=== PATIENT | male | born 1975 | race Caucasian/White ===

== ENCOUNTER 2017-02-12 13:26 | Emergency (ER) | payer SELFPAY ==
[2017-02-12 13:30] VITALS: BP 133/71
[2017-02-12] MEDS ORDERED: DOXYCYCLINE HYCLATE 100 MG TABLET PO ONE (14:15)
[2017-02-12] MEDS ORDERED: DOXY100C2 PO (14:18)
--- NOTE | 2017-02-12 14:18 | PHYS DOC ---
Adult General Chief Complaint Chief Complaint: FINGER PROBLEM HPI HPI Patient is a 41-year-old male who presents with pain and swelling to his left index finger, worsening over the past 3-4 days. He did squeeze some pus out of it. At first it seemed like a bug bite. There was no specific injury to the area. He is not suspicious of any retained foreign body. Review of Systems Review of Systems Constitutional: Denies fever or chills [] Integument: Denies any other abscesses on his skin Current Medications Current Medications Current Medications Medications (Trade) Dose Ordered Sig/Liz Start Time Stop Time Status Last Admin Dose Admin Doxycycline Hyclate (Vibra-Tab) 100 mg 1X ONCE 02/12/17 14:15 02/12/17 14:16 Allergies Allergies Allergies Coded Allergies Type Severity Reaction Last Updated Verified Sulfa (Sulfonamide Antibiotics) Allergy Unknown 02/12/17 Yes Physical Exam Physical Exam Constitutional: Well developed, well nourished, no acute distress, non-toxic appearance. [] HENT: Normocephalic, atraumatic, bilateral external ears normal, nose normal. [ ] Eyes: conjunctiva normal, no discharge. [] Neck: Normal range of motion, no stridor. [] Skin: Warm, dry, no erythema, no rash. [] Extremities: Left index finger has a abscess located over the proximal phalanx approximately 2 cm in diameter with no surrounding cellulitis. There has been some bloody and purulent drainage from the abscess. Patient's index finger range of motion is slightly limited by swelling but no significant limitation. Neurologic: Alert and oriented X 3, normal motor function, normal sensory function, no focal deficits noted. [] EKG EKG [] Radiology/Procedures Radiology/Procedures Procedure: Incision and drainage of left index finger abscess by me The skin was cleaned with alcohol. The skin was frozen by topical application of ice. A scalpel was used to make an incision over the area of most lengthy. No significant purulent drainage was obtained. Patient tolerated the procedure well. [] Course & Med Decision Making Course & Med Decision Making Pertinent Labs and Imaging studies reviewed. (See chart for details) 41-year-old male with a small abscess on his left index finger, he has been squeezing it at home and had squeezed out some pus. I did incise the abscess that did not get any further pus out of it, I believe he had already expressed it out. We will have him soak and put him on antibiotics, [place] is [place] [] Claudeon Disclaimer Dragon Disclaimer This chart was dictated in whole or in part using Voice Recognition software in a busy, high-work load, and often noisy Emergency Department environment. It may contain unintended and wholly unrecognized errors or omissions. Departure Departure: Impression: Primary Impression: Abscess of finger of left hand Disposition: HOME, SELF-CARE Condition: STABLE Patient Instructions: Abscess, [id number] Additional Instructions: Soak your hand 3-4 times daily in warm soapy water for about 10 minutes, to keep the incision open and allow it to drain. Don't squeeze it. Elevate for swelling and pain. Doxycycline, antibiotic, every 12 hours. Your next dose is due at bedtime tonight. Follow-up in 1-2 days for recheck, sooner if worse. Scripts Doxycycline Hyclate (DOXYCYCLINE HYCLATE) 100 Mg Capsule 1 CAP PO BID for finger infection/abscess, #20 CAP Prov: KAROL HURD MD 02/12/17 KAROL HURD MD February 12, 2017 14:18
[2017-02-12] MEDS ORDERED: MUPIROCIN 2% TOPICAL OINTMENT 22GM TUBE. TP ONE ×2 (14:23→14:30)
== END 2017-02-12 14:32 | disposition home or self-care (01) ==
LOC: ER 13:26
DX: L02.512 Cutaneous abscess of left hand (principal); Z88.2 Allergy status to sulfonamides
CPT/HCPCS: 26010; 99284-25

== ENCOUNTER 2017-03-04 21:41 | Emergency (ER) | payer OTHER ==
[~2017-03-04] VITALS: Ht 172.7 cm; Wt 76.7 kg
[~2017-03-04 21:41] MED LIST: DOXY100C2 PO
--- NOTE | 2017-03-04 22:47 | PHYS DOC ---
General Chief Complaint: BACK INJURY Stated Complaint: FALL Time Seen by MD: 22:15 Source: patient Exam Limitations: no limitations Problems: History of Present Illness Initial Comments Patient is a 41-year-old male who comes to the ED complaining of fall injury. Patient states that he built a homemade zip line for his kids in his backyard. Tonight he says he decided to try it and when he did so the line broke causing him to fall an estimated 10-12 feet landing on his back. Patient states that he did hit his head on the ground he did not lose consciousness but he "saw stars. " He's had a mild headache with neck discomfort no focal weakness no nausea vomiting. Headache described as minimal aching no exacerbating or alleviating factors. He was able to walk into the house and took some ibuprofen and laid down to rest. The symptoms were persistent and he developed bilateral upper extremity tingling without weakness and decided to come for evaluation. In the ED his vital signs are stable at this point he denies headache photophobia and nausea vomiting or focal weakness his only complaint is neck and upper back pain and bilateral upper extremity tingling. No low back pain or other complaints. Occurred: this afternoon Severity: moderate Injuries/Pain Location: head, back Context: other Loss of Consciousness: no loss of consciousness Modifying Factors: worse with jarring, worse with movement, improves with rest Associated Symptoms: headache, neck pain, other Allergies: Coded Allergies: Sulfa (Sulfonamide Antibiotics) (Verified Allergy, Intermediate, 03/05/17) Past Medical History Medical History: other (MRSA skin infections) Surgical History: noncontributory Social History Smoker: non-smoker Alcohol: rarely Drugs: none Review of Systems Constitutional: denies chills, denies diaphoresis, denies fever, denies malaise Eyes: denies blindness, denies blurred vision, denies drainage, denies photophobia Ears, Nose, Mouth, Throat: denies ear pain, denies ear discharge, denies nose pain, denies nose discharge, denies epistaxis, denies mouth pain, denies throat pain Respiratory: denies cough, denies shortness of breath, denies wheezing Cardiovascular: denies chest pain, denies palpitations, denies syncope Gastrointestinal: denies abdominal pain, denies diarrhea, denies nausea, denies vomiting Genitourinary: denies dysuria, denies frequency, denies hematuria Musculoskeletal: see HPI, back pain Psychiatric/Neurological: see HPI Physical Exam General Appearance: WD/WN, mild distress Head: no evidence of injury (negative Dias sign and negative raccoon eyes no visual or palpable evidence of trauma.) Eyes: bilateral eye normal inspection, bilateral eye PERRL, bilateral eye EOMI Ears, Nose, Mouth, Throat: hearing grossly normal, no evidence of ENT injury ( no ear or nose discharge no fluid behind TMs bilaterally), no dental injury Neck: other (diffuse soft tissue and bony tenderness without focality and no palpable deformity there is hypertonicity of the paraspinal muscles.) Cardiovascular/Respiratory: normal peripheral pulses, no respiratory distress Gastrointestinal: non tender, soft Back: no CVA tenderness, no vertebral tenderness Extremities: normal range of motion, non-tender 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 Labs are back and unremarkable, CT evaluation is pending. Patient will have prolonged ED course due to radiology delays. PATIENT: DALILA SULLIVAN ACCOUNT: [id number] : 1975 LOCATION: ER AGE: 41 SEX: M EXAM STATUS: PRE ER ORD. PHYSICIAN: JOSE CRUZ BUENO DO REASON: fall to back 12 feet PROCEDURE: CT THORACIC SPINE WO CONTRAST Examination: CT thoracic spine without contrast and CT abdomen and pelvis without contrast HISTORY: History of fall from 12 feet zip line, pain in the arms and hands, numbness COMPARISON: None available TECHNIQUE: Axial CT images of the thoracic spine was performed without contrast with coronal and sagittal reformatted performed. Axial CT images of the abdomen and pelvis were performed without contrast. Coronal and reformats are performed. Exposure: One or more of the following individualized dose reduction techniques were utilized for this examination: 1. Automated exposure control 2. Adjustment of the mA and/or kV according to patient size 3. Use of iterative reconstruction technique FINDINGS: The visualized bibasilar lungs grossly appears unremarkable. No evidence of free air identified in the abdomen. The examination is limited without contrast. Noncontrasted liver, spleen, adrenal is unremarkable. The gallbladder is mildly distended The stomach is mildly distended. The pancreas appears somewhat short. The stomach is mildly distended. The small bowel is nondilated. Feces and gas noted in the colon. No significant free fluid in dependent pelvis. The appendix also appears unremarkable. The caliber of the visualized aorta grossly appears unremarkable on this noncontrasted exam. Moderate disc height loss identified at L4-L5 vertebral level likely secondary to degeneration. The vertebral body heights in thoracic spine are maintained. No significant listhesis identified with the bilateral facets are well aligned. Disc bulge identified at L4-L5 vertebral level with mild protrusion. No acute fracture identified. IMPRESSION: 1. No acute intra-abdominal findings. 2. No acute fracture identified. Electronically signed by: Smith Gtz MD (03/04/2017 11:59 PM) DICTATED AND SIGNED BY: SMITH GTZ MD DATE: 03/04/17 2339 CC: GABINO BOWERS; JOSE CRUZ BUENO DO ~ PATIENT: DALILA SULLIVAN ACCOUNT: [id number] : 1975 LOCATION: ER AGE: 41 SEX: M EXAM STATUS: PRE ER ORD. PHYSICIAN: JOSE CRUZ BUENO DO REASON: fall to back 12 feet PROCEDURE: CT HEAD AND CERVICAL SPINE WO Examination: CT head and cervical spine Exposure: One or more of the following individualized dose reduction techniques were utilized for this examination: 1. Automated exposure control 2. Adjustment of the mA and/or kV according to patient size 3. Use of iterative reconstruction technique CT HEAD INDICATION: Ct Head and Cervical spine for fall from 12 feet, pain and numbness in both arms and hands COMPARISON: None Available. TECHNIQUE: 5 mm contiguous axial images were obtained from the skull base to the vertex in both bone and soft tissue algorithm. FINDINGS: No abnormal attenuation within the brain parenchyma. No evidence of acute intracranial hemorrhage. No extra-axial fluid collections. No mass effect or midline shift. Ventricular size is appropriate. Basal cisterns are patent. No fractures identified.Alvarez-white differentiation is preserved.Globes and orbits are within normal limits. Paranasal sinuses and mastoid air cells are clear. IMPRESSION: Unremarkable CT examination of the head without contrast, as above. Specifically, no evidence of an acute intracranial abnormality. CT CERVICAL SPINE INDICATION: Ct Head and Cervical spine for fall from 12 feet, pain and numbness in both arms and hands COMPARISON: None Available. Technique: 2.5 mm contiguous axial images were obtained from the skull base through the cervicothoracic junction in both bone and soft tissue algorithm. Additional sagittal and coronal reconstructions were also performed. FINDINGS: Vertebral body height and alignment are maintained. Cervical lordosis is preserved. The lateral masses of C1 are aligned upon C2. No fractures identified. The bony canal is patent throughout. Minimal joint space loss identified at C6-C7 vertebral level. The paraspinous soft tissues are unremarkable. Visualized intracranial contents are unremarkable. Lung apices are clear. IMPRESSION: 1. No acute fracture the cervical spine. Correlate clinically. 2. Mild degenerative changes identified at C6-C7 vertebral level. Electronically signed by: Smith Gtz MD (03/04/2017 11:39 PM) DICTATED AND SIGNED BY: SMITH GTZ MD DATE: 03/04/17 0725 CC: GABINO BOWERS; JOSE CRUZ BUENO DO ~ Labs unremarkable 0011: I discussed findings with the patient. He denies any new or worsening symptoms and says his hand tingling is improving. I discussed observation admission possibility patient refuses. I discussed concussion precautions and the treatment plan patient expressed agreement and understanding of same. Departure Time of Disposition: 00:12 Disposition: HOME, SELF-CARE Diagnosis: Fall, concussion, contusion Condition: STABLE Patient Instructions: Chest Contusion, [id number], Concussion and Brain Injury, [id number] Additional Instructions: Off work through March 07. Ice 15-20 minutes 4-6 times daily. Rest, no strenuous activity exercise or exertion until cleared by your doctor. [id number] Tylenol as needed for discomfort. Aggressive hydration with Gatorade or water. A Tylenol #3 starter pack was sent home with you. Take one every 6 hours as needed for discomfort. Take with food to avoid nausea and vomiting. Follow-up with your doctor on Monday for recheck and further activity restriction modifications. Return to the ED with new or changing symptoms. JOSE CRUZ BUENO DO Mar 04, 2017 22:47
[2017-03-04] MEDS ORDERED: IV NORMAL SALINE 1,000ML 1,000 ML IV SCH (23:00)
[2017-03-04] MEDS ORDERED: KETOROLAC 30 MG/ML VIAL. IV ONE (23:00)
[2017-03-04 23:36] LABS: BASO # 0.1 x10^3/uL (0.0-0.2); BASO % 1 % (0-3); EOS # 0.2 x10^3/uL (0.0-0.7); EOS % 2 % (0-3); HEMOGLOBIN 13.7 g/dL (13.0-17.5); LYMPH # 2.4 x10^3/uL (1.0-4.8); LYMPH % 27 % (24-48); MEAN CORPUSCULAR HEMOGLOBIN 29 pg (25-35); MEAN CORPUSCULAR HGB CONC 34 g/dL (31-37); MEAN CORPUSCULAR VOLUME 88 fL (79-100); MONO # 0.7 x10^3/uL (0.0-1.1); MONO % 8 % (0-9); NEUT # 5.6 x10^3uL (1.8-7.7); NEUT % 63 % (31-73); PLATELET COUNT 259 x10^3/uL (140-400); RED BLOOD COUNT 4.69 x10^6/uL (4.30-5.70); RED CELL DISTRIBUTION WIDTH 12.4 % (11.5-14.5); WHITE BLOOD COUNT 8.9 x10^3/uL (4.0-11.0)
--- NOTE | 2017-03-04 23:42 | RAD ---
Examination: CT head and cervical spine Exposure: One or more of the following individualized dose reduction techniques were utilized for this examination: 1. Automated exposure control 2. Adjustment of the mA and/or kV according to patient size 3. Use of iterative reconstruction technique CT HEAD INDICATION: Ct Head and Cervical spine for fall from 12 feet, pain and numbness in both arms and hands COMPARISON: None Available. TECHNIQUE: 5 mm contiguous axial images were obtained from the skull base to the vertex in both bone and soft tissue algorithm. FINDINGS: No abnormal attenuation within the brain parenchyma. No evidence of acute intracranial hemorrhage. No extra-axial fluid collections. No mass effect or midline shift. Ventricular size is appropriate. Basal cisterns are patent. No fractures identified.Alvarez-white differentiation is preserved.Globes and orbits are within normal limits. Paranasal sinuses and mastoid air cells are clear. IMPRESSION: Unremarkable CT examination of the head without contrast, as above. Specifically, no evidence of an acute intracranial abnormality. CT CERVICAL SPINE INDICATION: Ct Head and Cervical spine for fall from 12 feet, pain and numbness in both arms and hands COMPARISON: None Available. Technique: 2.5 mm contiguous axial images were obtained from the skull base through the cervicothoracic junction in both bone and soft tissue algorithm. Additional sagittal and coronal reconstructions were also performed. FINDINGS: Vertebral body height and alignment are maintained. Cervical lordosis is preserved. The lateral masses of C1 are aligned upon C2. No fractures identified. The bony canal is patent throughout. Minimal joint space loss identified at C6-C7 vertebral level. The paraspinous soft tissues are unremarkable. Visualized intracranial contents are unremarkable. Lung apices are clear. IMPRESSION: 1. No acute fracture the cervical spine. Correlate clinically. 2. Mild degenerative changes identified at C6-C7 vertebral level. Electronically signed by: Smith Gtz MD (03/04/2017 11:39 PM)
[2017-03-04 23:51] LABS: ALBUMIN 3.9 g/dL (3.4-5.0); ALBUMIN/GLOBULIN RATIO 1.3 (1.0-1.7); CALCIUM 8.5 mg/dL (8.5-10.1); CREATININE 1.2 mg/dL (0.7-1.3); GFR 66.1; TOTAL BILIRUBIN 0.2 mg/dL (0.2-1.0); TOTAL PROTEIN 6.8 g/dL (6.4-8.2)
--- NOTE | 2017-03-05 00:02 | RAD ---
Examination: CT thoracic spine without contrast and CT abdomen and pelvis without contrast HISTORY: History of fall from 12 feet zip line, pain in the arms and hands, numbness COMPARISON: None available TECHNIQUE: Axial CT images of the thoracic spine was performed without contrast with coronal and sagittal reformatted performed. Axial CT images of the abdomen and pelvis were performed without contrast. Coronal and reformats are performed. Exposure: One or more of the following individualized dose reduction techniques were utilized for this examination: 1. Automated exposure control 2. Adjustment of the mA and/or kV according to patient size 3. Use of iterative reconstruction technique FINDINGS: The visualized bibasilar lungs grossly appears unremarkable. No evidence of free air identified in the abdomen. The examination is limited without contrast. Noncontrasted liver, spleen, adrenal is unremarkable. The gallbladder is mildly distended The stomach is mildly distended. The pancreas appears somewhat short. The stomach is mildly distended. The small bowel is nondilated. Feces and gas noted in the colon. No significant free fluid in dependent pelvis. The appendix also appears unremarkable. The caliber of the visualized aorta grossly appears unremarkable on this noncontrasted exam. Moderate disc height loss identified at L4-L5 vertebral level likely secondary to degeneration. The vertebral body heights in thoracic spine are maintained. No significant listhesis identified with the bilateral facets are well aligned. Disc bulge identified at L4-L5 vertebral level with mild protrusion. No acute fracture identified. IMPRESSION: 1. No acute intra-abdominal findings. 2. No acute fracture identified. Electronically signed by: Smith Gtz MD (03/04/2017 11:59 PM)
[2017-03-05] MEDS ORDERED: ACETAMINOPHEN/CODEINE 300/30MG 4TABLET STARTPACK. PO ONE (00:30)
[2017-03-05 00:45] VITALS: BP 113/78
== END 2017-03-05 00:45 | disposition home or self-care (01) ==
LOC: ER 21:41
DX: S06.0X0A Concussion without loss of consciousness, initial encounter (principal); S20.219A Contusion of unspecified front wall of thorax, initial encounter; Z88.2 Allergy status to sulfonamides; W17.89XA Other fall from one level to another, initial encounter; Y93.89 Activity, other specified; Y99.8 Other external cause status; Y92.096 Garden or yard of other non-institutional residence as the place of occurrence of the external cause
CPT/HCPCS: 36415; 70450; 72125; 72128; 74176; 80053; 82550; 85027; 96361; 96374; 99285; J1885; J7030

== ENCOUNTER 2017-10-07 11:43 | Emergency (ER) | payer OTHER ==
[~2017-10-07] VITALS: Ht 172.7 cm; Wt 79.4 kg
--- NOTE | 2017-10-07 11:47 | PHYS DOC ---
Past History Past Medical History: Other Past Surgical History: Other Alcohol Use: Rarely Drug Use: None Adult General Chief Complaint Chief Complaint: flulike symptoms HPI HPI Patient is a 42 year old M who presents with flulike symptoms over the past 2 weeks. He was diagnosed with an URI about 1 week ago. He feels that his symptoms improved until about 3-4 days ago. Over the past 3-4 days he has had dry cough with shortness of breath and nasal drainage. He denies pain. He does have a history of asthma. He has no other associated symptoms and no other exacerbating or relieving factors. Review of Systems Review of Systems Constitutional: Negative except history of present illness Eyes: Denies change in visual acuity, redness, or eye pain [] HENT: Negative except history of present illness Respiratory: Negative except history of present illness Cardiovascular: No additional information not addressed in HPI [] GI: Denies abdominal pain, nausea, vomiting, bloody stools or diarrhea [] : Denies dysuria or hematuria [] Musculoskeletal: Denies back pain or joint pain [] Integument: Denies rash or skin lesions [] Neurologic: Denies headache, focal weakness or sensory changes [] Endocrine: Denies polyuria or polydipsia [] All other systems were reviewed and found to be within normal limits, except as documented in this note. Family History Family History No pertinent medical history was reported Current Medications Current Medications Current medications were reviewed Allergies Allergies Allergies Coded Allergies Type Severity Reaction Last Updated Verified Sulfa (Sulfonamide Antibiotics) Allergy Intermediate 03/05/17 Yes Physical Exam Physical Exam Constitutional: Well developed, well nourished, no acute distress, non-toxic appearance. [] HENT: Normocephalic, atraumatic, mild nasal mucosa erythema and edema laterally Eyes: EOMI, conjunctiva normal, no discharge. [] Neck: Normal range of motion, no tenderness, supple, no stridor. [] Cardiovascular:Heart rate regular rhythm, no murmur [] Lungs & Thorax: Bilateral breath sounds clear to auscultation [] coarse breath sounds bilaterally with minimal wheezing noted Abdomen: Bowel sounds normal, soft, no tenderness, no masses, no pulsatile masses. [] Skin: Warm, dry, no erythema, no rash. [] Back: No tenderness, no CVA tenderness. [] Extremities: No tenderness, no cyanosis, no clubbing, ROM intact, no edema. [] Neurologic: Alert and oriented X 3, normal motor function, normal sensory function, no focal deficits noted. [] Psychologic: Affect normal, judgement normal, mood normal. [] Current Patient Data Vital Signs Vital Signs Date Time Temp Pulse Resp B/P (MAP) Pulse Ox O2 Delivery O2 Flow Rate FiO2 10/07/17 12:39 96 Room Air 10/07/17 11:52 98.0 98 16 98 Room Air Lab Results Laboratory Tests Test 10/07/17 12:05 Influenza Type A (Rapid) Positive (NEGATIVE) Influenza Type B (Rapid) Negative (NEGATIVE) EKG EKG [] Radiology/Procedures Radiology/Procedures Chest x-ray Impressions: No acute disease Course & Med Decision Making Course & Med Decision Making Pertinent Labs and Imaging studies reviewed. (See chart for details) [] Dragon Disclaimer Dragon Disclaimer This electronic medical record was generated, in whole or in part, using a voice recognition dictation system. Departure Departure: Impression: Primary Impression: Upper respiratory infection Additional Impressions: Bronchitis Influenza A Disposition: HOME, SELF-CARE Condition: STABLE Referrals: NON,STAFF (PCP) Patient Instructions: Acute Bronchitis, Influenza A (H1N1), Upper Respiratory Infection, Adult Additional Instructions: Cayden was seen in the emergency department for cough and congestion. No emergency medical condition was found on history or physical exam. He did have a normal chest x-ray. He was found to have a flu screen was positive for influenza A. His symptoms are most consistent with an upper respiratory infection and bronchitis. He is advised to use nasal saline rinses regularly. He was given prescriptions for inhaled and nasal steroids. He is advised continue using albuterol as needed. He was also encouraged to follow-up with his primary care doctor as needed for further management. Scripts Fluticasone Propionate (FLOVENT 110MCG HFA) 12 Gm Aer.w.adap 2 PUFF IH BID for 7 Days, #1 INHALER 2 Refills Prov: TAYO MENJIVAR MD 10/07/17 Fluticasone Propionate (Flonase Allergy Relief) 9.9 Ml Excello.susp 1 SPRAYS NS BID for 7 Days, BOTTLE Prov: TAYO MENJIVAR MD 10/07/17 Problem Qualifiers Primary Impression: Upper respiratory infection URI type: unspecified URI Qualified Codes: J06.9 - Acute upper respiratory infection, unspecified TAYO MENJIVAR MD Oct 07, 2017 11:47
[2017-10-07 11:52] VITALS: BP 128/75
[2017-10-07] MEDS ORDERED: FLUT12AE IH (12:10)
[2017-10-07] MEDS ORDERED: FLUT9.9S NS (12:10)
--- NOTE | 2017-10-07 12:20 | RAD ---
2 view chest 10/07/2017. Clinical indication: Cough and fever. Comparison: None. Findings: Cardiac and mediastinal silhouettes are unremarkable. No pleural effusion, pneumothorax or focal consolidation. Impression: No acute cardiopulmonary abnormality.
[2017-10-07] MEDS ORDERED: BUDESONIDE 0.5 MG/2 ML NEBU NEB ONE (12:30)
[2017-10-07] MEDS ORDERED: IPRATRPIUM/ALBUTEROL 0.5/2.5MG 3 ML NEBU. ONE (12:32)
[2017-10-07 12:48] LABS: INFLUENZA A PATIENT POSITIVE (NEGATIVE); INFLUENZA B PATIENT NEGATIVE (NEGATIVE)
== END 2017-10-07 13:05 | disposition home or self-care (01) ==
LOC: ER 11:43
DX: J09.X2 Influenza due to identified novel influenza A virus with other respiratory manifestations (principal); J40 Bronchitis, not specified as acute or chronic; J45.909 Unspecified asthma, uncomplicated; Z88.2 Allergy status to sulfonamides
CPT/HCPCS: 71046; 87804; 94640; 99285; J7626

== ENCOUNTER 2020-07-07 20:06 | Emergency (ER) | payer OTHER ==
[~2020-07-07] VITALS: Ht 172.7 cm; Wt 84.0 kg
[~2020-07-07 20:06] MED LIST changes: +FLUT12AE IH; +FLUT9.9S NS
--- NOTE | 2020-07-07 20:39 | PHYS DOC ---
Past History Past Medical History: No Pertinent History Past Surgical History: Other Alcohol Use: None Drug Use: None General Adult EDM: Chief Complaint: COUGH HPI: HPI: Patient is a 44-year male coming in for cough for 1 week, body aches. Cough was productive yesterday. Has had mild scratchiness throat. His children came home were ill today, mostly with runny noses. Denies loss of smell or taste. Denies vomiting or diarrhea but has had some soft stools. Was told by line to come to the emergency department for COVID test. Review of Systems: Review of Systems: Constitutional: Denies fever or chills but has body ache Eyes: Denies change in visual acuity HENT: Denies nasal congestion but has a sore throat Respiratory: Cough but no shortness of breath Cardiovascular: Denies chest pain or edema GI: Denies abdominal pain, nausea, vomiting, bloody stools or diarrhea : Denies dysuria Musculoskeletal: Denies back pain or joint pain Integument: Denies rash Neurologic: Denies headache, focal weakness or sensory changes Endocrine: Denies polyuria or polydipsia Lymphatic: Denies swollen glands Psychiatric: Denies depression or anxiety Heart Score: Risk Factors: Risk Factors: DM, Current or recent (<one month) smoker, HTN, HLP, family history of CAD, obesity. Risk Scores: Score 0 - 3: 2.5% MACE over next 6 weeks - Discharge Home Score 4 - 6: 20.3% MACE over next 6 weeks - Admit for Clinical Observation Score 7 - 10: 72.7% MACE over next 6 weeks - Early Invasive Strategies Allergies: Allergies: Allergies Coded Allergies Type Severity Reaction Last Updated Verified Sulfa (Sulfonamide Antibiotics) Allergy Intermediate 03/05/17 Yes Physical Exam: PE: Constitutional: Well developed, well nourished, no acute distress, non-toxic appearance. [] HENT: Normocephalic, atraumatic, bilateral external ears normal, oropharynx moist, no oral exudates, nose normal. [] Eyes: PERRLA, EOMI, conjunctiva normal, no discharge. [] Neck: Normal range of motion, no tenderness, supple, no stridor. [] Cardiovascular:Heart rate regular rhythm, no murmur [] Lungs & Thorax: Bilateral breath sounds clear to auscultation [] Abdomen: Bowel sounds normal, soft, no tenderness, no masses, no pulsatile masses. [] Skin: Warm, dry, no erythema, no rash. [] Back: No tenderness, no CVA tenderness. [] Extremities: No tenderness, no cyanosis, no clubbing, ROM intact, no edema. [] Neurologic: Alert and oriented X 3, normal motor function, normal sensory function, no focal deficits noted. [] Psychologic: Affect normal, judgement normal, mood normal. [] EKG: EKG: [] Radiology/Procedures: Radiology/Procedures: CHEST AP ONLY History: Reason: pain, cough / Spl. Instructions: / History: Comparison: October 07, 2017 Findings: No consolidation or pleural effusion. Normal heart size. No pneumothorax. Impression: 1. No acute cardiopulmonary process. [] Course & Med Decision Making: Course & Med Decision Making Pertinent Labs and Imaging studies reviewed. (See chart for details) [] Dragon Disclaimer: Dragon Disclaimer: This electronic medical record was generated, in whole or in part, using a voice recognition dictation system. Departure Departure: Disposition: 01 MO HOME SELF CARE/HOMELESS Condition: STABLE Referrals: PCP,UNKNOWN (PCP) Patient Instructions: Cough, Adult Additional Instructions: You have been tested for or diagnosed with COVID-19. It is an infection caused b y a new type of coronavirus. COVID-19 will cause cold-like or mild flu symptoms in most. It can cause more severe symptoms like problems breathing in some. There is no treatment for COVID-19. The body will clear the infection over time. Self-care will help to ease discomfort. Steps to Take: Self-Care Rest as needed. Healthy habits may help you feel better. Steps include: Choose healthy foods including fruits and vegetables. Drink water throughout the day. Get plenty of sleep each night. If you smoke, try to quit. It may ease breathing. Avoid alcohol. Keep Others Healthy The virus can spread to others. Droplets are released every time you sneeze or cough. The droplets can get into the mouth, nose, or eyes of people near you and lead to infection. To lower the chances of spreading COVID-19 to others: Stay at home until your doctor has said it is safe to leave. If you tested p ositive this will mean staying isolated until both of the following are true: At least 7 days have passed since the start of illness. You are free of fever for at least 72 hours without the use of medicine. During this time: - Avoid public areas, events, or transportation. Do not return to work or school until your doctor has said it is safe to do so. - Call ahead if you need to go to a medical center. Let them know you may have COVID-19. It will help them guide you where to go. They may also ask you to wear a facemask when you come to the office. - If you call for emergency medical services, let them know you may have COVID- 19. While at home: - Try to avoid close contact with others. Stay about 6 feet away. - If possible, spend most of your time in a separate room from others. - Use a face mask if you will be in close contact with others such as sharing a room or vehicle. - Have someone wipe down common surfaces in the home. Use household splitting machine tender every day on areas like doorknobs, counters, or sinks. - Cough or sneeze into a tissue. Throw the tissue away right after use. If a tissue is not available, cough or sneeze into your elbow. - Wash your hands often. Wash them after sneezing or coughing. Use soap and water and wash for at least 20 seconds. Alcohol based hand coach cleaner can be used if soap and water is not available. - Do not prepare food for others. Avoid sharing personal items like forks, spoons, or toothbrushes. - Avoid close contact with pets while you are sick. There is no evidence of the virus passing to pets. This is a safety step until more is known about this virus. Isolation can be frustrating. Social interaction can help. Keep in touch with friends and family through phone and tech options. You can still interact with others in your home, just keep a safe distance of about 6 feet. Follow-up: Your doctors office will check in with you to see if there are any changes in your health. You may be asked to keep track of symptoms to share with them. They will also let you know when you are clear to be in public again. Problems to Look Out For: Contact your doctor if your recovery is not going as you expect. Get emergency care if you have problems such as: - Trouble breathing - Nonstop chest pain or pressure - Changes in awareness, confusion, or problems waking - Lips or face have bluish color - Worsening of symptoms If you think you have an emergency, call for emergency medical services right away. As taken from [facility] JACK URIBE MD Jul 07, 2020 20:39
--- NOTE | 2020-07-07 21:06 | RAD ---
CHEST AP ONLY History: Reason: pain, cough / Spl. Instructions: / History: Comparison: October 07, 2017 Findings: No consolidation or pleural effusion. Normal heart size. No pneumothorax. Impression: 1. No acute cardiopulmonary process. Electronically signed by: David Milner DO (07/07/2020 9:04 PM) [facility]
[2020-07-07 21:20] VITALS: BP 124/81
--- NOTE | 2020-07-10 08:43 | NUR ---
IP: notified patient of COVID result.
== END 2020-07-07 21:30 | disposition home or self-care (01) ==
LOC: ER 20:06
DX: R05 Cough (principal); J02.9 Acute pharyngitis, unspecified; M79.10 Myalgia, unspecified site; Z20.828 Contact with and (suspected) exposure to other viral communicable diseases; Z88.2 Allergy status to sulfonamides
CPT/HCPCS: 71045; 99284; C9803; U0003

== ENCOUNTER 2021-01-22 09:17 | Emergency (ER) | payer OTHER ==
[~2021-01-22] VITALS: Ht 170.2 cm; Wt 76.4 kg
[2021-01-22 09:26] VITALS: BP 129/78
[2021-01-22] MEDS ORDERED: HYDROcodone/APAP 5/325MG 1 TAB TABLET PO ONE (11:30)
[2021-01-22] MEDS ORDERED: KETOROLAC 60 MG/2 ML VIAL. IM ONE (11:30)
[2021-01-22] MEDS ORDERED: IBUP600T16 PO (11:37)
[2021-01-22] MEDS ORDERED: CYCL-331 PO (11:37)
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
== END 2021-01-22 11:46 | disposition home or self-care (01) ==
LOC: ER 09:17
DX: M54.5 Low back pain (principal); G89.29 Other chronic pain; J45.909 Unspecified asthma, uncomplicated; E03.9 Hypothyroidism, unspecified; F32.9 Major depressive disorder, single episode, unspecified; Z88.2 Allergy status to sulfonamides
CPT/HCPCS: 96372; 99283; J1885

== ENCOUNTER → 2021-07-30 | Outpatient (CLI) | payer OTHER ==
[~2021-07-30] MED LIST changes: +CYCL10TA19 PO; -DOXY100C2 PO; +DOXY100C3 PO; +IBUP600T16 PO
--- NOTE | 2021-07-30 08:31 | RAD ---
EXAM: ULTRASOUND SOFT TISSUE NECK CLINICAL HISTORY: Hypothyroidism, dysphasia COMPARISON: None available. TECHNIQUE: Ultrasound examination of the thyroid gland was performed FINDINGS: The right thyroid lobe measures 4.4 x 1.3 x 1.5 cm. Left thyroid lobe measures 2.7 x 1.0 x 0.7 cm. Th e isthmus measures 3 mm. Normal thyroid parenchyma echogenicity and echotexture. No nodules. IMPRESSION: 1. Small thyroid gland, particularly the left lobe. 2. Normal appearance of thyroid parenchyma. No nodules. Electronically signed by: Gricelda Brandon MD (07/30/2021 8:28 AM) [id number]
== END ==
LOC: US 07:47
PROVIDERS: ATTEND Family Medicine
DX: E03.9 Hypothyroidism, unspecified (principal); R13.10 Dysphagia, unspecified
CPT/HCPCS: 76536

== ENCOUNTER → 2022-01-03 | Outpatient (CLI) | payer OTHER ==
--- NOTE | 2022-01-03 15:19 | RAD ---
PQRS Compliance Statement: One or more of the following individualized dose reduction techniques were utilized for this examinat ion: 1. Automated exposure control 2. Adjustment of the mA and/or kV according to patient size 3. Use of iterative reconstruction technique CT THORAX WO Clinical Indication: Reason: COUGH, ABNORMAL CXR FINDING / Spl. Instructions: / History: Comparison: None. TECHNIQUE: Helical CT imaging of the chest is performed without IV contrast. Findings: There is no adenopathy in the chest. Great vessels are upper limits of normal in caliber. No coronary artery calcium is seen. The cardiac size is normal, no pericardial effusion. There is no pleural abnormality. Minimal opacity with a chon of air in the dependent trachea is prob ably retained secretions or mucous. There are faint groundglass opacities in the posterior right uppe r lobe, largest measures 2.1 cm, image 36. There is a 5 mm nodule in the right upper lobe adjacent to a pulmonary vessel, image 36. Lungs are otherwise clear. The visualized upper abdomen is unremarkable. The thoracic spine alignment is maintained. No acute bone abnormality. IMPRESSION: 1. There are minimal groundglass opacities in the posterior right upper lobe that are probably infec tious/inflammatory. 2. There is a 5 mm noncalcified nodule in the right upper lobe. Consider CT chest follow-up in 12 mo nths if patient has risk factors for lung malignancy, otherwise no follow-up is required per [employer] guidelines. Electronically signed by: Reuben Guardado MD (01/03/2022 3:17 PM) [facility]
== END ==
LOC: CT 13:18
PROVIDERS: ATTEND Family Medicine
DX: R91.1 Solitary pulmonary nodule (principal); J98.4 Other disorders of lung; R05.9 Cough, unspecified
CPT/HCPCS: 71250